=== PATIENT | female | born 1980 | race American Indian/Alaskan Native ===

== ENCOUNTER 2019-12-05 05:54 | Observation (INO) | payer OTHER ==
[2019-12-04 10:00] LABS: Basophils % (Auto) 0.5 % (0.0-1.8); Eosinophils # (Auto) 0.4 K/mm3 (0.0-0.4); Eosinophils % (Auto) 3.6 % (0.0-4.3); Hematocrit 31.6 % (30.3-42.9); Hemoglobin 10.3 gm/dl (10.1-14.3); Lymphocytes # (Auto) 3.1 K/mm3 (1.2-5.4); Lymphocytes % (Auto) 31.1 % (13.4-35.0); Mean Corpuscular HGB Conc 33 % (30-34); Mean Corpuscular Volume 70 fl (79-97); Monocytes # (Auto) 0.6 K/mm3 (0.0-0.8); Monocytes % (Auto) 6.2 % (0.0-7.3); Platelet Count 284 K/mm3 (140-440)
--- NOTE | 2019-12-04 10:33 | Anesthesia Consultation ---
Anesthesia Consult and Med Hx Date of service: 12/05/19 - Airway Anesthetic Teeth Evaluation: Good, Chipped (cracked left upper molar) ROM Head & Neck: Adequate Mental/Hyoid Distance: Adequate Mallampati Class: Class II Intubation Access Assessment: Probably Good - Pulmonary Exam CTA: Yes - Cardiac Exam Cardiac Exam: RRR - Pre-Operative Health Status ASA Pre-Surgery Classification: ASA2 Proposed Anesthetic Plan: General Nerve Block: TAP - Pulmonary Hx Smoking: No Hx Respiratory Symptoms: No - Cardiovascular System Hx Hypertension: Yes Hx Heart Attack/AMI: No Hx Percutaneous Transluminal Coronary Angioplasty (PTCA): No Hx Cardia Arrhythmia: No (EKG NSR on chart) - Central Nervous System CVA: No - Gastrointestinal Hx Gastroesophageal Reflux Disease: No - Endocrine Hx Renal Disease: No Hx Liver Disease: No Hx Insulin Dependent Diabetes: No Hx Non-Insulin Dependent Diabetes: No Hx Thyroid Disease: No - Other Systems Hx Obesity: Yes (BMI 39) - Additional Comments Anesthesia Medical History Comments: No hx anesthetic complications. Recent PCP evaluation on chart.
--- NOTE | 2019-12-04 17:50 | History and Physical Report ---
History of Present Illness Date of examination: 11/29/19 Chief complaint: Menometrorrhagi, endometrial polyp and ovarian cyst History of present illness: Past History : 3 Term Births: 3 Living Children: 3 # 1 Delivery date: 1996 Delivery type: # 2 Delivery type: # 3 Delivery type: [employer] History Operations: Tubal Ligation Oral Abnormal PAP: negative Infection History HIV Risk Eval: no Hx of STD: None Active Medications (reviewed today): IBUPROFEN 800 MG ORAL TABLET (IBUPROFEN) 1 po TID (PRN) BYSTOLIC 10 MG ORAL TABLET (NEBIVOLOL HCL) AMLODIPINE BESYLATE TABLET (AMLODIPINE BESYLATE TABS) Current Allergies (reviewed today): No known allergies Past Medical History: Reviewed history from 07/07/2019 and no changes required: Hypertension Past Surgical History: Reviewed history from 07/07/2019 and no changes required: Tubal Ligation Oral Family History Summary: Reviewed history and no changes required: 12/04/2019 Other Family Member - Has No Family History of Uterine Cancer - Entered On: 07/25/2019 Other Family Member - Has No Family History of Small Bowel Cancer - Entered On: 07/25/2019 Other Family Member - Has No Family History of Stomach Cancer - Entered On: 07/25/2019 Other Family Member - Has No Family History of Pancreatic Cancer - Entered On: 07/25/2019 Other Family Member - Has No Family History of Ovarvian Cancer - Entered On: 07/25/2019 Other Family Member - Has No Family History of Kidney/Urinary Tract Cancer - Entered On: 07/25/2019 Other Family Member - Has No Family History of Spontaneous DVT-PE - Entered On: 07/25/2019 Other Family Member - Has No Family History of Colon Cancer - Entered On: 07/25/2019 Other Family Member - Has No Family History of Brain Cancer - Entered On: 07/25/2019 Other Family Member - Has No Family History of Breast Cancer - Entered On: 07/25/2019 Other Family Member - Has No Family History of Biliary Tract Cancer - Entered On: 07/25/2019 Social History: Reviewed history from 07/07/2019 and no changes required: Patient is single Smoking History: Patient has never smoked. Risk Factors: Smoked Tobacco Use: Never smoker Smokeless Tobacco Use: Never Passive smoke exposure: no Drug use: no HIV high-risk behavior: no Alcohol use: no Exercise: yes Seatbelt use: 100 % Mammogram History: Date of Last Mammogram: 07/07/2019 PAP Smear History: Date of Last PAP Smear: 03/14/2019 Previous Tobacco Use: Signed On - 07/07/2019 Smoked Tobacco Use: Never smoker Smokeless Tobacco Use: Never Passive smoke exposure: no Drug use: no HIV high-risk behavior: no Caffeine use: 0 drinks per day Previous Alcohol Use: Signed On - 07/07/2019 Alcohol use: no Exercise: yes Times per week: 5 Type of Exercise: walking Mammogram History: Date of Last Mammogram: 07/07/2019 PAP Smear History: Date of Last PAP Smear: 03/14/2019 Review of Systems General Denies fever, chills, sweats, anorexia, fatigue, weakness, malaise, weight loss and sleep disorder. Complains of menorrhagia and abnormal vaginal bleeding. Denies vaginal discharge, incontinence, dysuria, hematuria, urinary frequency, amenorrhea, pelvic pain, genital sores, decreased libido, painful periods, painful sex, urinary urgency, hot flashes, vaginal dryness, vaginal itching and vaginal odor. CV Denies chest pains, palpitations, syncope, dyspnea on exertion, orthopnea, PND and peripheral edema. Resp Denies cough, dyspnea at rest, excessive sputum, hemoptysis, wheezing and pleurisy. GI Denies nausea, vomiting, diarrhea, constipation, change in bowel habits, abdominal pain, melena, hematochezia, jaundice, gas/bloating, indigestion/h eartburn, dysphagia and odynophagia. Endo Denies cold intolerance, heat intolerance, polydipsia, polyphagia, polyuria and unusual weight change. Breast Denies left breast lump, right breast lump, nipple discharge, bloody discharge from nipple, breast pain, abnormal mammogram and breast enlargement. MS Denies back pain, joint pain, joint swelling, muscle cramps, muscle weakness, stiffness, arthritis, sciatica, restless legs, leg pain at night and leg pain with exertion. Derm Denies rash, itching, dryness and suspicious lesions. Neuro Denies paralysis, paresthesias, headache, seizures, tremors, vertigo, transient blindness, frequent falls, frequent headaches and difficulty walking. Psych Denies depression, anxiety, irritability and mood swings. Eyes Denies blurring, diplopia, irritation, discharge, vision loss, eye pain and photophobia. ENT Denies earache, ear discharge, tinnitus, decreased hearing, nasal congestion, nosebleeds, sore throat and hoarseness. Allergy Denies urticaria, allergic rash, hay fever and recurrent infections. Heme Denies abnormal bruising, bleeding and enlarged lymph nodes. Physical Exam Appearance: well developed, well nourished, no acute distress Other Exams Lungs: no rales, rhonchi, or wheezes Heart: S1, S2, no murmur, rub, or gallop Genitourinary Exam Uterus: deferred for EUA Impression & Recommendations: Problem # 1: Excessive and frequent menstruation with irregular cycle (ICD- 626.6) ([id number]) Diagnosis explained to patient . Discussed with patient various medical, surgic al and radiological therapies common for treatment including, but not limited to,removal of the polyp, medical/hormonal therapy, ablation or hysterectomy. Discussed risks and benefits of laparotomy, laparoscopy, vaginal and robotic assisted approaches for hysterectomies. Patient desires definitive treatment in the form of robot assisted laparoscopic total hysterectomy. The risks and alternatives for this surgery were reviewed with the patient. She was informed of the risks of the surgery including, but not limited to, pain, infection, bleeding possibly heavy enough to require a blood transfusion with associated risks of infections (hepatitis and HIV) and transfusion reactions, possible damage to bowel, bladder or ureter(s). Patient understands that this surgery with make her sterile. Indications to abort a robotic/laparoscopic procedure and perform an open procedure were explained. She desires ovarian conservation. She was informed she may require surgery later to have her ovaries removed for a benign or mailgnant condition. Patient understands if her ovaries are removed she will become menopausal. Patient advised the small risks of spreading of malignancy if morcellation is required during the surgery patient understands and approves performing if necessary. Questions answered. Consent reviewed and signed The patient was instructed/informed the following: The normal length of hospital stay for this procedure. Nothing to eat or drink after midnight the evening prior to surgery. Clear liquids the day before surgery. Pre-op instruction sheets given. Wound care instructions given. Problem # 2: Ovarian cyst, left side (ICD-620.2) ([id number]) Problem # 3: Chronic endometritis (ICD-615.1) ([id number]) ) Problem # 4: Endometrial polyp (ICD-621.0) (WYG93-F29.0) ] Medications and Allergies Allergies Allergy/AdvReac Type Severity Reaction Status Date / Time No Known Allergies Allergy Verified 11/28/19 18:17 Home Medications Medication Instructions Recorded Confirmed Last Taken Type Nebivolol HCl [Bystolic] 10 mg PO DAILY 11/28/19 11/28/19 Unknown History amLODIPine [Norvasc] 5 mg PO DAILY 11/28/19 11/28/19 Unknown History Active Meds: Active Medications Amlodipine Besylate (Amlodipine) 5 mg PO DAILY ASHLEE Celecoxib (Celebrex) 200 mg PO PREOP NR Stop: 12/05/19 22:00 Fentanyl (Sublimaze) 100 mcg IV ONCE PRN PRN Reason: sedation for nerve block Stop: 12/05/19 22:00 Gabapentin (Gabapentin) 600 mg PO PREOP NR Stop: 12/05/19 22:00 Lactated Ringer's (Lactated Ringers) 1,000 mls @ 100 mls/hr IV DIRECT ASHLEE Stop: 12/05/19 23:59 Cefazolin Sodium (Ancef/Sterile Water 2 Gm/20 Ml) 2 gm in 20 mls @ 80 mls/hr IV PREOP NR; Protocol Midazolam HCl (Versed) 2 mg IV PREOP NR Stop: 12/05/19 22:00 Miscellaneous Medication (Nebivolol Hcl [Bystolic]) 10 mg PO DAILY ASHLEE Exam Vital Signs Temp Pulse Resp BP Pulse Ox 98.3 F 56 L 20 167/62 100 12/04/19 09:00 12/04/19 09:00 12/04/19 09:00 12/04/19 09:00 12/04/19 09:00 Results - Labs 12/04/19 09:10 Abnormal lab results 12/04/19 Range/Units 09:10 MCV 70 L (79-97) fl MCH 23 L (28-32) pg RDW 19.0 H (13.2-15.2) % Assessment and Plan - Patient Problems (1) Excessive and frequent menstruation with irregular cycle Status: Acute (2) Endometrial polyp Status: Acute (3) Chronic endometritis Status: Chronic (4) Hypertension Status: Chronic Qualifiers: Hypertension type: essential hypertension Qualified Code(s): I10 - Edwar ugaldel (primary) hypertension (5) Ovarian cyst Status: Acute (6) BMI 39.0-39.9,adult Status: Chronic
[2019-12-05] MEDS ORDERED: ceFAZolin/Water 2 GM/20 ML 2 GM/20 ML SYRINGE IV NR (06:00)
[2019-12-05] MEDS ORDERED: GABAPENTIN 300 MG CAP PO NR (06:00)
[2019-12-05] MEDS ORDERED: MIDAZOLAM 2 MG/2 ML INJ IV NR (06:00)
[2019-12-05] MEDS ORDERED: fentaNYL 100 MCG/2 ML INJ IV PRN (06:00)
[2019-12-05] MEDS ORDERED: CELECOXIB 200 MG CAP PO NR (06:00)
[2019-12-05] MEDS ORDERED: LACTATED RINGERS 1,000 ML IV SCH (06:00)
[2019-12-05] MEDS ORDERED: cloNIDine/PF 1,000 MCG/10 ML VIAL EP ONE (07:15)
[2019-12-05] MEDS ORDERED: dexAMETHasone 4 MG/ML VIAL ONE (07:15)
[2019-12-05] MEDS ORDERED: BUPIVACAINE-EPINEPHRINE/PF 0.25%-1:200,000 (10 ML) VIAL INFILTRATI ONE (07:15)
[2019-12-05] MEDS ORDERED: NEOMY 40 MG/POLYMYXIN B 200,000 UNITS/ML (GU) AMPULE IR ONE ×2 (07:18→08:52)
[2019-12-05] MEDS ORDERED: dexAMETHasone 20 MG/5 ML VIAL ONE (07:27)
[2019-12-05] MEDS ORDERED: HYDROmorphone 1 MG/1 ML INJ ONE (07:27)
[2019-12-05] MEDS ORDERED: ONDANSETRON 4 MG/2 ML INJ ONE (07:27)
[2019-12-05] MEDS ORDERED: propofoL 200 MG/20 ML VIAL IV ONE (07:27)
[2019-12-05] MEDS ORDERED: LIDOCAINE MPF (2%) 20 MG/1 ML VIAL 5 ML ONE (07:27)
[2019-12-05] MEDS ORDERED: ROCURONIUM 50 MG/5 ML INJ IV ONE ×2 (07:27→08:46)
[2019-12-05] MEDS ORDERED: ONDANSETRON 4 MG/2 ML INJ IV PRN (07:30)
[2019-12-05] MEDS ORDERED: HYDROmorphone 1 MG/1 ML INJ IV PRN (07:30)
--- NOTE | 2019-12-05 07:30 | Anesthesia Day of Surgery ---
Anesthesia Day of Surgery - Day of Surgery Patient Examined: Yes Patient H&P Reviewed: Yes Patient is NPO: Yes
[2019-12-05] MEDS ORDERED: LACTATED RINGERS 1,000 ML ONE (08:46)
[2019-12-05] MEDS ORDERED: GLYCOPYRROLATE 0.4 MG/2 ML INJ ONE ×2 (08:52→10:08)
[2019-12-05] MEDS ORDERED: SODIUM CHLORIDE 0.9% IRRIG SOLN 2000 ML IR ONE (08:53)
[2019-12-05] MEDS ORDERED: amLODIPine 5 MG TAB PO SCH (10:00)
[2019-12-05] MEDS ORDERED: NEBIVOLOL HCL 10 MG PO SCH (10:00)
[2019-12-05] MEDS ORDERED: METOPROLOL SUCCINATE XL 100 MG TAB PO SCH (10:00)
[2019-12-05] MEDS ORDERED: NEOSTIGMINE 10MG/10 ML INJ MDV ONE (10:08)
--- NOTE | 2019-12-05 10:56 | Operative Report ---
Operative Report Operative Report: Date: 12/05/2019 Preoperative diagnosis: 1. Menometrorrhagia 2. Chronic endometritis 3. Body mass index of 39 kg/m 4. Hypertension 5. Possible endometrial polyp 6. Possible left ovarian cyst Postoperative diagnosis: 1. Menometrorrhagia 2. Chronic endometritis 3. Body mass index of 39 kg/m 4. Hypertension 5. Possible endometrial polyp 6. Left tubal endometrioma 7. Right paratubal cyst Procedure: 1. Robotic-assisted laparoscopic total hysterectomy with bilateral salpingectomy 2. Right paratubal cystectomy Surgeon: Sade Spencer MD Die Cast Die Maker: Barbara Bustillo MD Anesthesiologist: Dr. Belkis Benítez MD Anesthesia: General endotracheal anesthesia EBL: Approximately minimal mL Findings: EUA: Uterus palpated to approximately 12 weeks. Uterus was sounded to 10 cm. Enlarged uterus, grossly normal ovaries, left hydrosalpinx that inadvertently drained brownish fluid on removing it through the trocar. Grossly normal interrupted right tube. Procedure: Patient was taken to the OR and placed in the supine position. General anesthesia was induced and an oral gastric tube was placed. Her neck and head were placed on foam support. Foam eye protection with goggles were secured in place. Then foam face protection was placed and secured. Foam shoulder pads were then positioned on her shoulders for Trendelenburg positioning. She was then placed in dorsolithotomy position. Exam under anesthesia as above. The abdomen and vagina were then prepped and draped in the usual sterile fashion. Timeout was performed. A Rocha catheter was inserted into the bladder with drainage of clear yellow urine. The operative speculum was introduced into the vagina and the anterior lip of the cervix was grasped with single-toothed tenaculum. The uterus was sounded to 10 cm. The cervix was progressively dilated to allow the large V care uterine manipulator. The bulb of the manipulator was inflated and the speculum and tenaculum were removed. The cup of the manipulator was placed around the cervix and the blue occluder of the manipulator was properly positioned in the vagina and secured. A laparotomy sponge that was saturated with a solution of polymyxin and saline was placed in the vagina to ensure pneumoperitoneum. Sterile gloves were placed and attention was turned to the abdomen. A 10 mm midline vertical supraumbilical incision was made approximately 10 cm superior to the elevated fundus of the uterus. A 10-12 mm trocar with the laparoscope and camera attached was introduced through this incision under direct visualization. The abdomen was insufflated. No obvious bowel, bladder, ureteral, or major vascular injury was noted. The patient was then placed in steep Trendelenburg position and the following trochars were placed under direct visualization: 8 mm robotic trochars were placed through incisions made in the bilateral midclavicular lower abdominal region approximately 10 cm lateral to the midline incision, and a 5 mm trocar was placed through an incision made in the right lower lateral pelvis. The 10 mm laparoscope was then replaced by a 5 mm laparoscope that was placed through the 5 millimeter lateral trocar. The 12 mm trocar was then removed and the Ez Robles fascial closure device was placed through the incision and a 0 Vicryl was placed through the fascia. Once the suture was secured the 12 mm trocar was reintroduced. Once the trochars were in the appropriate positions, the Digital Trowel Breanna robot system was engaged. The EndoShears and bipolar device was placed through the 8 mm trochars and positioned then attention was turned to the console. The uterus was elevated, the right paratubal cyst was noted and removed then bilateral salpingectomy was performed in the usual fashion. Each tube was removed through the 5 mm trocar and sent to pathology in separate containers. Then the utero-ovarian ligaments were clamped. cauterized and incised bilaterally using 30 W of energy. Then the round ligaments were clamped, cauterized and incised bilaterally. The anterior leaf of the broad ligament was elevated and with careful blunt and sharp dissection the bladder flap was created and dissected away from the lower uterine segment and cervix. The posterior leaf of the broad ligament was dissected away from the uterine vessels. The cup of the uterine manipulator was palpated both anteriorly and posteriorly. The bladder was further dissected away from the lower uterine segment. The uterine vessels were then clamped and cauterized bilaterally. Blanching of the uterus was then noted. Attention was again turned to the anterior lower uterine segment and the bladder was confirmed to be away from the operative field. Then attention was turned again to the posterior where the cup of the manipulator was palpated and a colpotomy was performed down to the cup. The incision was extended in the lateral position to the uterine vessels that were again clamped and cauterized and incised. Continuing along the cup of the manipulator in a circumferential manner the colpotomy was completed. The uterus and cervix were then removed through the vaginal incision. The pelvis was irrigated with warm normal saline. A moist laparotomy sponge was placed in the vagina to maintain pneumoperitoneum. The vagina cuff was reapproximated using V LOC 180 suture. Then a J stitch was performed to secure the suture. Again the pelvis was copiously irrigated with polymixin in warm normal saline. The laparotomy sponge was removed from the vagina. No obvious evidence of bowel, bladder, ureteral, or major vascular injury was noted. Once hemostasis was noted, Yamilka was applied to the operative field to ensure hemostasis. Then the instruments were removed, the robot was disengaged. The 12 mm trocar was removed and the fascia was ligated with the 0 Vicryl suture that was placed at the beginning of the procedure. The patient was taken out of Trendelenburg position, the abdomen was desufflated, the remaining trochars were removed. Incisions were reapproximated using 4-0 Monocryl in a subcuticular manner. Surgiseal was placed over the other incisions. The vagina was then inspected, the cuff was palpated to be intact and no bleeding was noted and clear yellow urine was draining into the Rocha bag from the bladder at the end of the procedure. Counts were correct 3. Patient was taken to recovery room in stable condition.
[2019-12-05] MEDS ORDERED: KETOROLAC 30 MG/1 ML INJ ONE (11:00)
[2019-12-05] MEDS ORDERED: SODIUM CHLORIDE 0.9% 1000 ML 1,000 ML ONE (11:09)
[2019-12-05] MEDS ORDERED: MORPHINE 2 MG/1 ML INJ IV PRN (13:25)
[2019-12-05] MEDS ORDERED: ONDANSETRON 4 MG ODT TAB PO PRN (13:25)
[2019-12-05] MEDS ORDERED: METOCLOPRAMIDE 10 MG TAB PO PRN (13:25)
[2019-12-05] MEDS ORDERED: METOCLOPRAMIDE 10 MG/2 ML INJ IV PRN (13:25)
[2019-12-05] MEDS ORDERED: MORPHINE 4 MG/1 ML INJ IV PRN (13:25)
[2019-12-05] MEDS ORDERED: ACETAMINOPHEN 325 MG TAB PO PRN (13:25)
--- NOTE | 2019-12-05 13:39 | Post Anesthesia Evaluation ---
- Post Anesthesia Evaluation Patient Participated: Yes Airway Patent: Yes Stable Respiratory Function: Yes Nausea/Vomiting: No Temp > 96.8F: Yes Pain Manageable: Yes Adequeate Hydration: Yes Anesthesia Complications: No
[2019-12-05] MEDS: KETOROLAC 30 MG/1 ML INJ IV SCH ×2 (14:06→21:26)
[2019-12-05] MEDS: ceFAZolin/NS 1 GM/50 ML 1 GM/50 ML BAG IV SCH (16:30)
[2019-12-05] MEDS: HYDROcodone/ACETAMINOPHEN 5-325 MG TAB PO PRN (19:39)
[2019-12-05] MEDS: SODIUM CHLORIDE 0.9% 1000 ML 1,000 ML IV SCH (19:41)
--- NOTE | 2019-12-05 20:32 | Progress Note ---
Assessment and Plan Patient resting in bed, states pain in lower pelvis. Otherwise doing well, no bleeding. Operative findings and procedure explained. Questions encouraged and answered. Pain management and plan of care discussed. She voiced understanding and agrees with plan of care - Patient Problems (1) History of robot-assisted laparoscopic hysterectomy Current Visit: Yes Status: Acute (2) Status post bilateral salpingectomy Current Visit: Yes Status: Acute (3) Hypertension Current Visit: No Status: Chronic Qualifiers: Hypertension type: essential hypertension Qualified Code(s): I10 - Essential (primary) hypertension (4) BMI 39.0-39.9,adult Current Visit: No Status: Chronic (5) Excessive and frequent menstruation with irregular cycle Current Visit: No Status: Resolved (6) Endometrial polyp Current Visit: No Status: Resolved (7) Chronic endometritis Current Visit: No Status: Resolved (8) Ovarian cyst Current Visit: No Status: Resolved Subjective - Subjective Date of service: 12/05/19 Principal diagnosis: DOS s/p RALTH with bilateral salpingectomy Interval history: Past History : 3 Term Births: 3 Living Children: 3 # 1 Delivery date: 1996 Delivery type: # 2 Delivery type: # 3 Delivery type: [employer] History Operations: Tubal Ligation Oral Abnormal PAP: negative Infection History HIV Risk Eval: no Hx of STD: None Active Medications (reviewed today): IBUPROFEN 800 MG ORAL TABLET (IBUPROFEN) 1 po TID (PRN) BYSTOLIC 10 MG ORAL TABLET (NEBIVOLOL HCL) AMLODIPINE BESYLATE TABLET (AMLODIPINE BESYLATE TABS) Current Allergies (reviewed today): No known allergies Past Medical History: Reviewed history from 07/07/2019 and no changes required: Hypertension Past Surgical History: Reviewed history from 07/07/2019 and no changes required: Tubal Ligation Oral Family History Summary: Reviewed history and no changes required: 12/04/2019 Other Family Member - Has No Family History of Uterine Cancer - Entered On: 07/25/2019 Other Family Member - Has No Family History of Small Bowel Cancer - Entered On: 07/25/2019 Other Family Member - Has No Family History of Stomach Cancer - Entered On: 07/25/2019 Other Family Member - Has No Family History of Pancreatic Cancer - Entered On: 07/25/2019 Other Family Member - Has No Family History of Ovarvian Cancer - Entered On: 07/25/2019 Other Family Member - Has No Family History of Kidney/Urinary Tract Cancer - Entered On: 07/25/2019 Other Family Member - Has No Family History of Spontaneous DVT-PE - Entered On: 07/25/2019 Other Family Member - Has No Family History of Colon Cancer - Entered On: 07/25/2019 Other Family Member - Has No Family History of Brain Cancer - Entered On: 07/25/2019 Other Family Member - Has No Family History of Breast Cancer - Entered On: 07/25/2019 Other Family Member - Has No Family History of Biliary Tract Cancer - Entered On: 07/25/2019 Social History: Reviewed history from 07/07/2019 and no changes required: Patient is single Smoking History: Patient has never smoked. Risk Factors: Smoked Tobacco Use: Never smoker Smokeless Tobacco Use: Never Passive smoke exposure: no Drug use: no HIV high-risk behavior: no Alcohol use: no Exercise: yes Seatbelt use: 100 % Mammogram History: Date of Last Mammogram: 07/07/2019 PAP Smear History: Date of Last PAP Smear: 03/14/2019 Previous Tobacco Use: Signed On - 07/07/2019 Smoked Tobacco Use: Never smoker Smokeless Tobacco Use: Never Passive smoke exposure: no Drug use: no HIV high-risk behavior: no Caffeine use: 0 drinks per day Previous Alcohol Use: Signed On - 07/07/2019 Alcohol use: no Exercise: yes Times per week: 5 Type of Exercise: walking Mammogram History: Date of Last Mammogram: 07/07/2019 PAP Smear History: Date of Last PAP Smear: 03/14/2019 Review of Systems General Denies fever, chills, sweats, anorexia, fatigue, weakness, malaise, weight loss and sleep disorder. Complains of menorrhagia and abnormal vaginal bleeding. Denies vaginal discharge, incontinence, dysuria, hematuria, urinary frequency, amenorrhea, pelvic pain, genital sores, decreased libido, painful periods, painful sex, urinary urgency, hot flashes, vaginal dryness, vaginal itching and vaginal odor. CV Denies chest pains, palpitations, syncope, dyspnea on exertion, orthopnea, PND and peripheral edema. Resp Denies cough, dyspnea at rest, excessive sputum, hemoptysis, wheezing and pleurisy. GI Denies nausea, vomiting, diarrhea, constipation, change in bowel habits, abdominal pain, melena, hematochezia, jaundice, gas/bloating, indigestion/heartburn, dysphagia and odynophagia. Endo Denies cold intolerance, heat intolerance, polydipsia, polyphagia, polyuria and unusual weight change. Breast Denies left breast lump, right breast lump, nipple discharge, bloody discharge from nipple, breast pain, abnormal mammogram and breast enlargement. MS Denies back pain, joint pain, joint swelling, muscle cramps, muscle weakness, stiffness, arthritis, sciatica, restless legs, leg pain at night and leg pain with exertion. Derm Denies rash, itching, dryness and suspicious lesions. Neuro Denies paralysis, paresthesias, headache, seizures, tremors, vertigo, transient blindness, frequent falls, frequent headaches and difficulty walking. Psych Denies depression, anxiety, irritability and mood swings. Eyes Denies blurring, diplopia, irritation, discharge, vision loss, eye pain and photophobia. ENT Denies earache, ear discharge, tinnitus, decreased hearing, nasal congestion, nosebleeds, sore throat and hoarseness. Allergy Denies urticaria, allergic rash, hay fever and recurrent infections. Heme Denies abnormal bruising, bleeding and enlarged lymph nodes. Physical Exam Appearance: well developed, well nourished, no acute distress Other Exams Lungs: no rales, rhonchi, or wheezes Heart: S1, S2, no murmur, rub, or gallop Genitourinary Exam Uterus: deferred for EUA Impression & Recommendations: Problem # 1: Excessive and frequent menstruation with irregular cycle (ICD- 626.6) ([id number]) Diagnosis explained to patient . Discussed with patient various medical, surgical and radiological therapies common for treatment including, but not limited to,removal of the polyp, medical/hormonal therapy, ablation or hysterectomy. Discussed risks and benefits of laparotomy, laparoscopy, vaginal and robotic assisted approaches for hysterectomies. Patient desires definitive treatment in the form of robot assisted laparoscopic total hysterectomy. The risks and alternatives for this surgery were reviewed with the patient. She was informed of the risks of the surgery including, but not limited to, pain, infection, bleeding possibly heavy enough to require a blood transfusion with associated risks of infections (hepatitis and HIV) and transfusion reactions, possible damage to bowel, bladder or ureter(s). Patient understands that this surgery with make her sterile. Indications to abort a robotic/laparoscopic procedure and perform an open procedure were explained. She desires ovarian conservation. She was informed she may require surgery later to have her ovaries removed for a benign or mailgnant condition. Patient understands if her ovaries are removed she will become menopausal. Patient advised the small risks of spreading of malignancy if morcellation is required during the surgery patient understands and approves performing if necessary. Questions answered. Consent reviewed and signed The patient was instructed/informed the following: The normal length of hospital stay for this procedure. Nothing to eat or drink after midnight the evening prior to surgery. Clear liquids the day before surgery. Pre-op instruction sheets given. Wound care instructions given. Problem # 2: Ovarian cyst, left side (ICD-620.2) (IBD18-P12.292) Problem # 3: Chronic endometritis (ICD-615.1) ([id number]-S96.1) ) Problem # 4: Endometrial polyp (ICD-621.0) ([id number]-Y14.0) ] Patient reports: appetite normal Objective - Vital Signs Latest vital signs: Vital Signs Temp Pulse Resp BP BP Pulse Ox 12/05/19 18:02 14 12/05/19 15:40 97.7 F 74 20 118/64 12/05/19 12:35 97.4 F L 62 14 119/70 95 12/05/19 12:00 97.6 F 59 L 12 124/67 100 12/05/19 11:23 54 L 10 L 110/62 100 12/05/19 11:11 52 L 10 L 109/57 100 12/05/19 11:00 50 L 12 109/55 12/05/19 10:45 58 L 12 112/59 100 12/05/19 10:36 98.2 F 66 12 102/55 100 12/05/19 07:49 14 12/05/19 07:25 57 L 17 129/69 100 12/05/19 07:20 54 L 18 116/61 100 12/05/19 07:18 20 12/05/19 07:15 52 L 12 134/72 100 12/05/19 06:45 20 12/05/19 06:40 97.7 F 53 L 20 127/78 99 12/05/19 06:25 97.7 F 53 L 20 127/78 99 Intake and Output 12/05/19 12/05/19 12/05/19 06:59 14:59 22:59 Intake Total 450 430 Output Total 260 1400 Balance 190 -970 Intake: IV 450 50 ANCEF/NS 1 GM/50 ML 1 gm 50 In 50 ml @ 100 mls/hr IV Q8H [facility] Rx#:[id number] Oral 380 Output: Urine 260 1400 Indwelling Catheter 1400 Other: Total, Intake Amount 260 Total, Output Amount 700 Voiding Method Toilet Indwelling Catheter - Exam Breasts: Present: deferred Cardiovascular: Present: Regular rate Lungs: Present: Clear to auscultation, Normal air movement Abdomen: Present: soft, normal bowel sounds Extremities: Absent: tenderness (SCD's on and functioning appropriately) Incision: Present: normal, dry, intact
[2019-12-05] MEDS ORDERED: FAMOTIDINE 20 MG/2 ML INJ IV SCH (22:00)
[2019-12-06] MEDS: ceFAZolin/NS 1 GM/50 ML 1 GM/50 ML BAG IV SCH (01:43)
[2019-12-06] MEDS: KETOROLAC 30 MG/1 ML INJ IV SCH (05:00)
[2019-12-06] MEDS: SODIUM CHLORIDE 0.9% 1000 ML 1,000 ML IV SCH (05:00)
[2019-12-06 07:30] LABS: Hematocrit 29.5 % (30.3-42.9); Hemoglobin 9.1 gm/dl (10.1-14.3)
[2019-12-06] MEDS: HYDROcodone/ACETAMINOPHEN 5-325 MG TAB PO PRN (07:33)
--- NOTE | 2019-12-06 09:06 | Discharge Summary ---
Providers - Providers Date of Admission: 12/05/19 10:41 Date of discharge: 12/06/19 Attending physician: GIL MATOS Hospitalization Condition: Good Procedures: RALTH, (B) salpingectomy Hospital course: Normal Disposition: DC-01 TO HOME OR SELFCARE - Discharge Diagnoses (1) History of robot-assisted laparoscopic hysterectomy Status: Acute (2) Status post bilateral salpingectomy Status: Acute (3) Hypertension Status: Chronic Qualifiers: Hypertension type: essential hypertension Qualified Code(s): I10 - Essential (primary) hypertension (4) BMI 39.0-39.9,adult Status: Chronic (5) Excessive and frequent menstruation with irregular cycle Status: Resolved (6) Endometrial polyp Status: Resolved (7) Chronic endometritis Status: Resolved (8) Ovarian cyst Status: Resolved Core Measure Documentation - Palliative Care Palliative Care/ Comfort Measures: Not Applicable - Core Measures Any of the following diagnoses?: none Exam - Constitutional Vitals: Temp Pulse Resp BP Pulse Ox 97.6 F 58 L 18 103/48 99 12/06/19 07:44 12/06/19 07:44 12/06/19 07:44 12/06/19 07:44 12/06/19 07:44 General appearance: Present: no acute distress - Neck Neck: Present: supple - Respiratory Respiratory effort: normal Respiratory: negative: CTA - Cardiovascular Rhythm: regular - Extremities Extremities: no ischemia, No edema - Abdominal General gastrointestinal: Present: soft, non-tender, non-distended, normal bowel sounds - Integumentary Integumentary: Present: clear, warm, dry (Incisions c/d/i) - Psychiatric Psychiatric: appropriate mood/affect, intact judgment & insight, memory intact, cooperative - Neurologic Neurologic: CNII-XII intact Plan Activity: other (No sex, no driving. Ambulate 1mile on your property a day. Void every 2hours or more frequently. ) Weight Bearing Status: Full Weight Bearing Diet: low fat, low cholesterol, low salt (Eat small meals frequently, Drink 110oz water a day) Special Instructions: no heavy lifting (Greater than 25lbs) Follow up with: JOSÉ GRAY [Other] - 7 Days GIL MATOS MD [Staff Physician] - 12/13/19 10:00 am ([place] office) Prescriptions: Ibuprofen [Motrin 800 MG tab] 800 mg PO Q8H PRN #30 tablet PRN Reason: Pain, Mild (1-3) oxyCODONE /ACETAMINOPHEN [Percocet 5/325 mg] 1 - 2 tab PO Q6H PRN #14 tablet PRN Reason: Pain, Moderate (4-6)
[2019-12-06] MEDS ORDERED: oxyCODONE /ACETAMINOPHEN 5-325MG TAB PO PRN (10:41)
[2019-12-06] MEDS ORDERED: IBUPROFEN 800 MG TAB PO PRN (10:41)
[2019-12-06 11:32] VITALS: BP 120/51
== END 2019-12-06 11:45 | disposition home or self-care (01) ==
LOC: OR 05:54 → OB 10:41
PROVIDERS: ADMIT Obstetrics & Gynecology; ATTEND Obstetrics & Gynecology
DX: N92.1 Excessive and frequent menstruation with irregular cycle (principal); Z20.828 Contact with and (suspected) exposure to other viral communicable diseases; N84.0 Polyp of corpus uteri; N71.9 Inflammatory disease of uterus, unspecified; I10 Essential (primary) hypertension; N83.202 Unspecified ovarian cyst, left side; Z79.899 Other long term (current) drug therapy
CPT/HCPCS: 36415; 58571; 64450; 81025; 85014; 85018; 85025; 86850; 86900; 86901; 88302; 88304; 88307; 96361; 96365; 96366; 96375; 96376; A4217; G0378; J0690; J0735; J1100; J1170; J1885; J2250; J2270; J2405; J2704; J2710; J3010; J7030; J7120; S2900; U0003; 96367; Q0162